=== PATIENT | male | born 1970 | race Caucasian/White ===

== ENCOUNTER → 2021-04-07 | Outpatient (CLI) | payer MEDICARE, OTHER | LOC: KOH-I 12:31 | DX: M25.511 Pain in right shoulder (principal); M25.512 Pain in left shoulder | CPT/HCPCS: 73030 ==

== ENCOUNTER → 2021-10-06 | Outpatient (CLI) | payer MEDICARE, OTHER | LOC: EXRD 11:41 | DX: M08.80 Other juvenile arthritis, unspecified site (principal); M25.50 Pain in unspecified joint; R93.6 Abnormal findings on diagnostic imaging of limbs | CPT/HCPCS: 73130; 73630 ==